=== PATIENT | male | born 1980 ===

== ENCOUNTER 2021-08-10 12:39 | Outpatient (CLI) | payer OTHER ==
[2021-08-10] MEDS ORDERED: METRONIDAZOLE500 MG PO (20:37)
[2021-08-10] MEDS ORDERED: CIPRO500 MG PO (20:37)
== END 2021-08-10 14:58 | disposition home or self-care (01) ==
LOC: LAB 12:39
PROVIDERS: ATTEND Emergency Medicine Pediatric Emergency Medicine
DX: Z03.818 Encounter for observation for suspected exposure to other biological agents ruled out (principal)

== ENCOUNTER 2021-08-10 13:31 | Emergency (ER) | payer OTHER ==
[~2021-08-10] VITALS: Ht 170.2 cm; Wt 85.3 kg
[2021-08-10] MEDS ORDERED: CIPRO500 MG PO (20:37)
[2021-08-10] MEDS ORDERED: METRONIDAZOLE500 MG PO (20:37)
== END 2021-08-10 21:19 | disposition home or self-care (01) ==
LOC: ER 13:31
DX: A09 Infectious gastroenteritis and colitis, unspecified (principal); Z03.818 Encounter for observation for suspected exposure to other biological agents ruled out

== ENCOUNTER 2022-03-27 15:13 | Outpatient (CLI) | payer OTHER ==
[~2022-03-27 15:13] MED LIST: CIPRO500 MG PO; METRONIDAZOLE500 MG PO
== END 2022-03-27 15:38 | disposition home or self-care (01) ==
LOC: LAB 15:13
PROVIDERS: ATTEND Emergency Medicine Pediatric Emergency Medicine
DX: Z20.828 Contact with and (suspected) exposure to other viral communicable diseases (principal)